=== PATIENT | male | born 2005 | race Caucasian/White ===

== ENCOUNTER 2024-04-18 20:36 | Emergency (ER) | payer OTHER ==
[2024-04-18 20:48] VITALS: BP 132/90; PULSE 85; RESP 18; TEMP 97.7; BMI 22.1
[2024-04-18] MEDS: SODIUM CHLORIDE FOR INHALATION 3 ML VIAL.NEB IH ONE (21:54)
[2024-04-18] MEDS: ALBUTEROL SO4 0.083% IH SOL 2.5 MG/3 ML VIAL.NEB. NEB ONE (21:55)
== END 2024-04-18 22:50 | disposition home or self-care (01) ==
LOC: JER 20:36
PROC: 3E0F7GC Introduction of Other Therapeutic Substance into Respiratory Tract, Via Natural or Artificial Opening (ICD-10-PCS; principal; 2024-04-18)
DX: R07.89 Other chest pain (principal)
CPT/HCPCS: 71046-TC-FY; 93005; 93010; 99284-25